=== PATIENT | male | born 1940 | race Caucasian/White ===

== ENCOUNTER 2023-06-02 09:38 | Day surgery (SDC) | payer OTHER, BC ==
[2023-05-28 11:25] VITALS: BMI 29.2
[2023-06-02] MEDS: PHENYLEPHRINE 2.5% OPTHALMIC DROP 2ML BOTTLE ONE ×3 (10:15→10:25)
[2023-06-02] MEDS: TROPICAMIDE 1% OPHTH SOLN 15 ML BOTTLE ONE ×3 (10:15→10:25)
[2023-06-02] MEDS: CIPROFLOXACIN 0.3% EYE DROPS 5 ML BOTTLE ONE ×3 (10:15→10:25)
[2023-06-02] MEDS: CYCLOPENTOLATE 2% OPHTH SOLN 2 ML BOTTLE ONE ×3 (10:15→10:25)
[2023-06-02] MEDS ORDERED: BSS (NA/CA/MG/K) BALANCED SALT SOLUTION OPHTH SOLN 15 ML BOTTLE ONE (10:57)
[2023-06-02] MEDS ORDERED: NEO/POLYMYX B SULF/DEXAMETH OPHTHALMIC 5ML BOTTLE ONE (10:57)
[2023-06-02] MEDS ORDERED: CARBACHOL 0.01% INTRA-OCULAR 1.5 ML VIAL ONE (10:57)
[2023-06-02] MEDS ORDERED: TETRACAINE 0.5% OPHTH SOLN 2 ML BOTTLE ONE (10:57)
[2023-06-02] MEDS ORDERED: MIDAZOLAM HCL 2 MG/2 ML SINGLE DOSE VIAL ONE (11:02)
[2023-06-02] MEDS ORDERED: ONDANSETRON 4 MG/2 ML VIAL ONE (11:02)
[2023-06-02 12:17] VITALS: TEMP 98.2
[2023-06-02 12:20] VITALS: BP 136/66; PULSE 74; RESP 19
== END 2023-06-02 12:20 | disposition home or self-care (01) ==
LOC: FASU 09:38
PROVIDERS: ATTEND Ophthalmology
PROC: 08RJ3JZ Replacement of Right Lens with Synthetic Substitute, Percutaneous Approach (ICD-10-PCS; principal; 2023-06-02 11:30)
DX: H26.8 Other specified cataract (principal)
CPT/HCPCS: 66984; V2632

== ENCOUNTER 2023-06-30 07:35 | Day surgery (SDC) | payer OTHER, BC ==
[2023-06-23 10:28] VITALS: BMI 29.2
[2023-06-30] MEDS: PHENYLEPHRINE 2.5% OPTHALMIC DROP 2ML BOTTLE ONE (08:05)
[2023-06-30] MEDS: CIPROFLOXACIN 0.3% EYE DROPS 5 ML BOTTLE ONE (08:05)
[2023-06-30] MEDS: CYCLOPENTOLATE 2% OPHTH SOLN 2 ML BOTTLE ONE (08:05)
[2023-06-30] MEDS: TROPICAMIDE 1% OPHTH SOLN 15 ML BOTTLE ONE (08:05)
[2023-06-30] MEDS ORDERED: LIDOCAINE 1% P/F 10 MG/ML VIAL ONE (09:09)
[2023-06-30] MEDS ORDERED: BSS (NA/CA/MG/K) BALANCED SALT SOLUTION OPHTH SOLN 15 ML BOTTLE ONE (09:10)
[2023-06-30] MEDS ORDERED: TETRACAINE 0.5% OPHTH SOLN 2 ML BOTTLE ONE (09:10)
[2023-06-30] MEDS ORDERED: CARBACHOL 0.01% INTRA-OCULAR 1.5 ML VIAL ONE (09:10)
[2023-06-30] MEDS ORDERED: NEO/POLYMYX B SULF/DEXAMETH OPHTHALMIC 5ML BOTTLE ONE (09:11)
[2023-06-30] MEDS ORDERED: EPINEPHrine/PF 1 MG/1 ML (1:1,000) AMPULE ONE (09:11)
[2023-06-30] MEDS ORDERED: MIDAZOLAM HCL 2 MG/2 ML SINGLE DOSE VIAL ONE (09:52)
[2023-06-30 10:53] VITALS: BP 134/75; PULSE 68; RESP 19; TEMP 97.2
== END 2023-06-30 10:53 | disposition home or self-care (01) ==
LOC: FASU 07:35
PROVIDERS: ATTEND Ophthalmology
PROC: 08RK3JZ Replacement of Left Lens with Synthetic Substitute, Percutaneous Approach (ICD-10-PCS; principal; 2023-06-30 09:55)
DX: H26.8 Other specified cataract (principal)
CPT/HCPCS: 66984; V2632